=== PATIENT | female | born 1960 | race African-American/Black ===

== ENCOUNTER → 2018-11-25 | Outpatient (CLI) | payer BC ==
[~2018-11-25] MED LIST: CALCIUM 500500 M1; ESTROVEN MAX400 MCG PO; MULTIVITAMIN FO1 CAP; VITAMIN D31000 IU PO; VITAMIN E 400 U4001 PO
== END ==
LOC: MC.RAD 09:39
DX: Z12.31 Encounter for screening mammogram for malignant neoplasm of breast (principal)

== ENCOUNTER → 2020-07-05 | Outpatient (CLI) | payer BC | LOC: MC.RAD 09:20 | DX: Z12.31 Encounter for screening mammogram for malignant neoplasm of breast (principal); N63.11 Unspecified lump in the right breast, upper outer quadrant ==

== ENCOUNTER → 2020-07-08 | Outpatient (CLI) | payer BC | LOC: MC.RAD 10:53 | DX: N63.10 Unspecified lump in the right breast, unspecified quadrant (principal) ==

== ENCOUNTER → 2020-07-19 | Outpatient (CLI) | payer BC | LOC: MC.RAD 07:57 | DX: N63.10 Unspecified lump in the right breast, unspecified quadrant (principal); Z98.82 Breast implant status ==

== ENCOUNTER 2020-11-23 19:21 | Emergency (ER) | payer BC ==
[~2020-11-23] VITALS: Ht 165.1 cm; Wt 82.3 kg
[2020-11-23 19:41] VITALS: TEMP 99.6
[2020-11-23 20:41] LABS: HEMOGLOBIN 14.1 g/dl (12.5-16.0); MEAN CELL VOLUME 83 fl (80.0-100.0); MEAN CORPUSCULAR HEMOGLOBIN 27 pg (27.0-31.0); MEAN CORPUSCULAR HGB CONC 32 g/dl (33.0-37.0); MEAN PLATELET VOLUME 9.8 fl (7.4-10.4); PLATELET COUNT 161 K/mm3 (130-400); RED BLOOD COUNT 5.28 M/mm3 (4.10-5.30); REDCELL DISTRIBUTION WIDTH-CV 13.2 % (11.5-14.5)
[2020-11-23 20:55] LABS: INR 1.1 (0.8-3.0); PROTHROMBIN TIME 12.3 SECONDS (9.7-12.8)
[2020-11-23 20:58] LABS: PARTIAL THROMBOPLASTIN TIME 34.8 SECONDS (26.0-37.0)
[2020-11-23 20:59] LABS: ALANINE AMINOTRANSFERASE 19 U/L (4-34); ALKALINE PHOSPHATASE 57 U/L (50-136); ANION GAP 6 mmol/L (7-16); AST,SGOT 23 U/L (15-37); BILIRUBIN,TOTAL 0.5 mg/dL (0.0-1.0); BLOOD UREA NITROGEN 11 mg/dL (7-17); C-REACTIVE PROTEIN 2.4 mg/dL (0.0-0.9); CALCIUM 8.9 mg/dL (8.4-10.2); CARBON DIOXIDE 26 mmol/L (22-30); CHLORIDE 103 mmol/L (98-107); CREATINE KINASE 36 U/L (30-135); GLUCOSE 107 mg/dL (74-106); LACTATE DEHYDROGENASE 360 U/L (313-618); POTASSIUM 4.2 mmol/L (3.4-5.0); SODIUM 135 mmol/L (137-145)
[2020-11-23 21:13] LABS: COLLECTION METHOD CLEAN CATCH
[2020-11-23 21:22] LABS: PH 6 (5-8); SQUAMOUS EPITHELIAL None Seen /hpf; URINE APPEARANCE Clear; URINE BACTERIA None Seen /hpf; URINE BILIRUBIN Negative (NEGATIVE); URINE BLOOD 1+ (NEGATIVE); URINE COLOR Straw; URINE GLUCOSE Negative (NEGATIVE); URINE KETONE Negative (NEGATIVE); URINE LEUKOCYTE ESTERASE Negative (NEGATIVE); URINE NITRATE Negative (NEGATIVE); URINE PROTEIN(semi-quant) Negative (NEGATIVE); URINE RBC None Seen /hpf; URINE UROBILINOGEN Negative (NEGATIVE); URINE WBC 0-2 /hpf
[2020-11-23 21:24] LABS: TROPONIN-I < 0.012 ng/mL (0.000-0.035)
[2020-11-23 21:25] LABS: ERYTHROCYTE SEDIMENTATION RATE 8 mm/hr (0-30)
[2020-11-23 21:53] LABS: BAND 1 % (0-10); EOSINOPHIL 1 % (0-4); HYPOCHROMIA 1+; LYMPHOCYTE 1 % (20.0-51.0); NEUTROPHILS 95 % (42.0-75.2); PLATELET ESTIMATE NORMAL (NORMAL)
[2020-11-23 21:54] LABS: OVALOCYTES 1+
[2020-11-23] MEDS ORDERED: LEVAQUIN 750MG750 M1 PO (22:40)
[2020-11-23] MEDS ORDERED: BACTROBAN 22GM22 GM TP (23:45)
[2020-11-24 01:18] VITALS: BP 114/59; PULSE 92
== END 2020-11-24 01:18 | disposition home or self-care (01) ==
LOC: COL.ER 19:21
PROVIDERS: Emergency Medicine
DX: R50.9 Fever, unspecified (principal); C83.10 Mantle cell lymphoma, unspecified site; Z87.891 Personal history of nicotine dependence
CPT/HCPCS: J0692; J7120

== ENCOUNTER → 2021-11-02 | Outpatient (CLI) | payer BC ==
[~2021-11-02] MED LIST changes: +BACTROBAN 22GM22 GM TP; +LEVAQUIN 750MG750 M1 PO
== END ==
LOC: MC.RAD 09:51
DX: Z12.31 Encounter for screening mammogram for malignant neoplasm of breast (principal)

== ENCOUNTER → 2022-04-09 | Outpatient (CLI) | payer BC | LOC: ZCOL.LAB 14:47 | DX: Z20.822 Contact with and (suspected) exposure to COVID-19 (principal) ==

== ENCOUNTER → 2022-06-11 | Outpatient (CLI) | payer BC | LOC: ZCOL.LAB 15:23 | DX: Z20.822 Contact with and (suspected) exposure to COVID-19 (principal) ==

== ENCOUNTER → 2022-12-07 | Outpatient (CLI) | payer BC | LOC: COL.LAB 10:10 | DX: Z11.59 Encounter for screening for other viral diseases (principal) ==

== ENCOUNTER → 2024-01-02 | Outpatient (CLI) | payer BC | LOC: MC.RAD 09:18 | DX: Z12.31 Encounter for screening mammogram for malignant neoplasm of breast (principal) ==

== ENCOUNTER 2024-01-24 19:02 | Inpatient (IN) | payer BC ==
[~2024-01-24] VITALS: Ht 167.6 cm; Wt 73.7 kg
[2024-01-24] MEDS ORDERED: cefTRIAXone 2 G in Water For Injection,Sterile 20 ML IV ONE (19:15)
[2024-01-24] MEDS ORDERED: NS 1,000 ML IV ONE (19:15)
[2024-01-24] MEDS ORDERED: Azithromycin 250 MG TAB PO ONE (19:15)
[2024-01-24 19:47] LABS: GRAN # 0.2 K/mm3 (1.4-6.5); GRAN % 30.9 % (42.2-75.2); HEMATOCRIT 37.2 % (37.0-47.0); HEMOGLOBIN 12.4 g/dl (12.5-16.0); LYMPH # 0.3 K/mm3 (1.2-3.4); LYMPH % 39.7 % (20.0-51.0); MEAN CELL VOLUME 79 fl (80.0-100.0); MEAN CORPUSCULAR HEMOGLOBIN 26 pg (27-31); MEAN CORPUSCULAR HGB CONC 33 g/dl (33.0-37.0); MEAN PLATELET VOLUME 9.7 fl (7.4-10.4); MONO # 0.1 K/mm3 (0.1-0.6); MONO % 14.7 % (1.7-9.3); PLATELET COUNT 142 K/mm3 (130-400); RED BLOOD COUNT 4.69 M/mm3 (4.10-5.30)
[2024-01-24 20:10] LABS: ALBUMIN 2.7 g/dL (3.4-4.8); CALCIUM 9.7 mg/dL (8.4-10.2); CREATININE, serum 0.87 mg/dL (0.57-1.11); POTASSIUM 3.9 mEq/L (3.5-4.5)
[2024-01-24 20:25] LABS: BILIRUBIN,TOTAL 1.5 mg/dL (0.2-1.2)
[2024-01-24] MEDS ORDERED: LR 1,000 ML IV ONE (20:30)
[2024-01-24 21:09] LABS: COLLECTION METHOD CLEAN CATCH
[2024-01-24] MEDS ORDERED: Acetaminophen 500 MG TAB PO ONE (21:15)
[2024-01-24 21:34] LABS: PH 5.5 (5.0-8.5); URINE APPEARANCE CLOUDY (CLEAR/HAZY); URINE BLOOD 2+ (NEGATIVE); URINE COLOR ORANGE (YELLOW); URINE GLUCOSE NEGATIVE (NEGATIVE); URINE KETONE TRACE (NEGATIVE); URINE NITRATE NEGATIVE (NEGATIVE); URINE PROTEIN(semi-quant) 2+ (NEGATIVE)
[2024-01-24] MEDS ORDERED: MULTIPLE VITAMI1 CAP PO (21:43)
[2024-01-24] MEDS ORDERED: [UNRECOGNIZED DRUG - OTHER] PO (21:44)
--- NOTE | 2024-01-24 22:02 | NUR ---
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
[2024-01-24 22:05] LABS: SQUAMOUS EPITHELIAL 0-2 /hpf (0-10); URINE RBC 0-2 /hpf (0-2)
[2024-01-24] MEDS ORDERED: Ibuprofen 400 MG TAB PO PRN (22:15)
[2024-01-24] MEDS ORDERED: Ondansetron 4 MG/2 ML VIAL IV PRN (22:15)
[2024-01-24] MEDS ORDERED: NS 1,000 ML IV SCH (22:15)
[2024-01-24] MEDS ORDERED: Acetaminophen 325 MG TAB PO PRN (22:15)
[2024-01-24] MEDS ORDERED: Vancomycin 1.5 GM,Special Dose/Pharmacy Prepared 1.5 GM in NS 250 ML IV ONE (22:30)
--- NOTE | 2024-01-24 22:32 | NUR ---
REPORT RECIEVED FROM STEVE CAMPA RN AT 2367.
[2024-01-24 22:53] LABS: INR 1.4 (0.8-3.0); PROTHROMBIN TIME 15.2 SECONDS (9.7-12.8)
--- NOTE | 2024-01-24 23:00 | NUR ---
FEMALE PATIENT ARRIVED TO ROOM #343 VIA STETCHER. PATIENT ASSISTED TO BED WITH STAND BY ASSIST. GAIT STEADY. LR INFUSING INTO LEFT FOREARM WITH NO COMPLICATIONS NOTED. TELEMETRY INTACT. INITAL INTAKE AND ASSESSMENT COMPLETED. PATIENT TOELRATED WELL. PATIENT VERBALIZED UNDERSTANDING OF BED CONTROLS AND CALL LIGHT. PRIMARY NURSE ASKED PATIENT IF SHE WOULD A SANDWITCH TRAY AND SOMETHING TO DRINK. PATIENT AGREED TO A SANDWITCH TRAY, ORANGE JUICE, AND PITCHER OF ICE WATER. ALL GIVEN. PATIENT DENIES ANY OTHER NEEDS. BED IN LOW POSITION WITH WHEELS LOCKED WITH RAILS UP X2 AND CALL LIGHT WITHIN REACH.
[2024-01-24 23:01] VITALS: BP 120/75; PULSE 110; TEMP 99.5
[2024-01-24 23:48] VITALS: BP 120/75
[2024-01-25] VITALS (12 sets, daily range): BP systolic 102–127; BP diastolic 52–73; PULSE 59–116; TEMP 98–99.4
[2024-01-25] MEDS ORDERED: Albuterol/Ipratropium 3 MG-0.5 MG/3 ML Neb Soln IH PRN (01:15)
[2024-01-25] MEDS ORDERED: Albuterol/Ipratropium 3 MG-0.5 MG/3 ML Neb Soln IH SCH (02:00)
[2024-01-25 06:51] LABS: MEAN CELL VOLUME 79 fl (80.0-100.0); MEAN CORPUSCULAR HGB CONC 34 g/dl (33.0-37.0); MEAN PLATELET VOLUME 10.7 fl (7.4-10.4); PLATELET COUNT 123 K/mm3 (130-400); RED BLOOD COUNT 3.91 M/mm3 (4.10-5.30); REDCELL DISTRIBUTION WIDTH-CV 13.2 % (11.5-14.5)
[2024-01-25 07:11] LABS: ALBUMIN 2.2 g/dL (3.4-4.8); BILIRUBIN,TOTAL 0.9 mg/dL (0.2-1.2); CALCIUM 8.4 mg/dL (8.4-10.2); CREATININE, serum 0.73 mg/dL (0.57-1.11); HEMATOCRIT 30.7 % (37.0-47.0); HEMOGLOBIN 10.4 g/dl (12.5-16.0); MEAN CORPUSCULAR HEMOGLOBIN 27 pg (27-31); POTASSIUM 3.8 mEq/L (3.5-4.5); TOTAL PROTEIN 5.4 g/dl (6.2-8.1)
--- NOTE | 2024-01-25 07:26 | NUR ---
CRITICAL LOW WBC CALLED TO DR. BACA. NO NEW ORDERS AT THIS TIME.
[2024-01-25] MEDS ORDERED: Multivitamin TAB PO SCH (09:00)
[2024-01-25] MEDS ORDERED: Pantoprazole 40 MG in NS 10 ML IV SCH (09:00)
[2024-01-25 09:04] LABS: BAND 6 % (0-10); LYMPHOCYTE 74 % (20.0-51.0); NEUTROPHILS 4 % (42.0-75.2); PLATELET ESTIMATE NORMAL (NORMAL)
[2024-01-25 09:06] LABS: MICROCYTOSIS 1+
--- NOTE | 2024-01-25 10:13 | NUR ---
PT RESTING IN CHAIR WITH PAIN 3/10 IN HEAD. PRN TYLENOL PROVIDED. STEADY GAIT AROUND ROOM, TOLERATING DEIT WELL, FAMILY AT BEDSIDE. REVERSE PRECAUTIONS IN PLACE. WILL CONTINUE TO MONITOR.
--- NOTE | 2024-01-25 11:02 | NUR ---
Clam Grader met with patient and to discuss discharge planning. Patient verified that she and /DPOA Alejandro ([phone]) live in [place]. Patient lists her son Pierre ([phone]) as contact. Patient sees FURNACE DOOR TENDER at [facility] for medical care and uses [facility] in [place]. Patient denies using any DME and states she is active and independent. Patient is on active cancer treatment every other month and denies any complications with this care. 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 She wants to complete one while she is here. Patient plans to return home independently at discharge. Discharge plan: Home
[2024-01-25] MEDS ORDERED: Vancomycin 1.25 GM,Special Dose/Pharmacy Prepared 1.25 GM in NS 250 ML IV SCH (11:30)
--- NOTE | 2024-01-25 11:54 | NUR ---
Data: Electric Locomotive Firer/Fireman visit attempted. RN was with Patient. Patient said something that was unclear at the time. RN and Electric Locomotive Firer/Fireman discussed at the Nurses' station. RN and Electric Locomotive Firer/Fireman believe Patient intended to decline Electric Locomotive Firer/Fireman visit. Assessment: Patient declined. Plan of Care: Chaplains will remain available as requested while Patient is admitted to this hospital.
--- NOTE | 2024-01-25 18:33 | NUR ---
PATIENT SITTING UP IN BEDSIDE RECLINER WITH AT BEDSIDE WITH TV ON WITH NO ACUTE DISTRESS NOTED. PATIENT ON ROOM AIR. NS INFUSING INTO LEFT FOREARM WITH NO COMPLICATIONS NOTED. PATIENT COMPLETED DINNER TRAY WITH 80% EATEN. TRAY REMOVED. PATIENT DENIES ANY OTHER NEEDS. PATIENT CARE ASSUMED FROM MARTHA. RECLINER LOCKED AND CALL LIGHT WITHIN REACH.
--- NOTE | 2024-01-25 19:50 | NUR ---
PATIENT RESTING IN BEDSIDE RECLINER WITH TV ON WITH AT BEDSIDE WITH NO ACUTE DISTRESS NOTED. PATIENT ON ROOM AIR. NS AND ZOSYN INFUSING INTO LEFT FOREARM WITH NO COMPLICATIONS NOTED. ASSESSMENT AND MEDICATION ADMINISTRATION COMPLETED AT THIS TIME. PATIENT TOELRATED WELL. PATIENT DENIES ANY NEEDS. RECLINER LOCKED AND CALL LIGHT WITHIN REACH.
[2024-01-26] VITALS (11 sets, daily range): BP systolic 123–134; BP diastolic 59–76; PULSE 110–124; TEMP 98.1–99.5
--- NOTE | 2024-01-26 08:12 | NUR ---
PT RESTING IN CHAIR WITH NO PAIN BUT PRODUCTIVE COUGH AT THIS TIME. COURSE CRACKLES IN ALL LUNG FELIDS. INSTRUCTED PT TO USE IS AND DEEP BREATHING TECHNIQUES. NO NEEDS AT THIS TIME, WILL CONTINUE TO MONITOR.
[2024-01-26 08:52] LABS: MEAN CELL VOLUME 79 fl (80.0-100.0); MEAN CORPUSCULAR HGB CONC 34 g/dl (33.0-37.0); MEAN PLATELET VOLUME 10.8 fl (7.4-10.4); PLATELET COUNT 129 K/mm3 (130-400); RED BLOOD COUNT 3.73 M/mm3 (4.10-5.30); REDCELL DISTRIBUTION WIDTH-CV 13.3 % (11.5-14.5)
[2024-01-26 08:54] LABS: HEMATOCRIT 29.5 % (37.0-47.0); HEMOGLOBIN 9.9 g/dl (12.5-16.0); MEAN CORPUSCULAR HEMOGLOBIN 27 pg (27-31)
[2024-01-26] MEDS ORDERED: Benzonatate 100 MG CAP PO SCH (09:32)
[2024-01-26] MEDS ORDERED: guaiFENesin/Codeine Oral Soln 100-10 MG/5 ML 5 ML UD PO PRN (10:00)
[2024-01-26 12:39] LABS: BAND 27 % (0-10); BASOPHIL 2 % (0-2); LYMPHOCYTE 34 % (20.0-51.0); NEUTROPHILS 29 % (42.0-75.2); NUCLEATED RED BLOOD CELL 2 (0-6); PLATELET ESTIMATE NORMAL (NORMAL)
[2024-01-26 12:40] LABS: MICROCYTOSIS 1+
--- NOTE | 2024-01-26 19:41 | NUR ---
RECEIVED CHANGE OF SHIFT REPORT FROM DAY SHIFT NURSE. PATIENT RESTING IN BED, FAMILY AT BEDSIDE. NO NEEDS REPORTED AT TIME OF REPORT.
--- NOTE | 2024-01-26 20:17 | NUR ---
PER PCT REPORT WHEN VS TAKEN, NOTIFIED NURSE THAT HR ELEVATED, APICAL PULSE CHECKED AT 134, PATIENT DENIES CHEST PAIN/SOA. OBSERVED OXYGEN SAT AT 94-96PERCENT. SEE [employer] FOR REST OF VS. DENIES CHILLS OR SHORTNESS OF AIR AT THIS TIME.
--- NOTE | 2024-01-26 20:29 | NUR ---
INFORMED ONCALL PROVIDER OF ELEVATED HEART RATE, PROVIDER TO ENTER ORDERS FOR EKG, RT NOTIFIED OF EKG ORDER.
[2024-01-27 00:18] VITALS: BP 137/77; PULSE 105; TEMP 98.8
[2024-01-27 01:00] VITALS: BP_SYST 137
[2024-01-27] MEDS ORDERED: Levalbuterol Neb Soln 1.25 MG/3 ML UD IH SCH (02:00)
[2024-01-27 03:50] VITALS: BP 150/75; PULSE 112; TEMP 99.2
[2024-01-27 05:30] VITALS: BP_SYST 150
[2024-01-27 06:33] LABS: MEAN CELL VOLUME 81 fl (80.0-100.0); MEAN CORPUSCULAR HGB CONC 33 g/dl (33.0-37.0); MEAN PLATELET VOLUME 10.3 fl (7.4-10.4); PLATELET COUNT 157 K/mm3 (130-400); RED BLOOD COUNT 3.61 M/mm3 (4.10-5.30); REDCELL DISTRIBUTION WIDTH-CV 13.6 % (11.5-14.5)
[2024-01-27 06:37] LABS: HEMATOCRIT 29.2 % (37.0-47.0); HEMOGLOBIN 9.6 g/dl (12.5-16.0); MEAN CORPUSCULAR HEMOGLOBIN 27 pg (27-31)
--- NOTE | 2024-01-27 07:16 | NUR ---
CHANGE OF SHIFT REPORT GIVEN TO DAY SHIFT NURSEJOYCE.
[2024-01-27 07:23] LABS: BAND 19 % (0-10); HYPOCHROMIA 1+; LYMPHOCYTE 26 % (20.0-51.0); METAMYELOCYTE 1 % (0-0); NEUTROPHILS 44 % (42.0-75.2); PLATELET ESTIMATE NORMAL (NORMAL)
[2024-01-27 07:24] LABS: OVALOCYTES 1+
[2024-01-27 08:01] VITALS: BP 133/74; PULSE 109; TEMP 99.2
[2024-01-27] MEDS ORDERED: PROAIR HFA0.09 MG/AC IH (08:39)
[2024-01-27] MEDS ORDERED: FLONASE NASAL S16 GM NS (08:40)
[2024-01-27 09:00] VITALS: BP_SYST 133
--- NOTE | 2024-01-27 09:19 | NUR ---
PATIENT ALERT AND ORIENTED X4. VSS. PATIENT HERE FOR PNA, UTI, LYMPHOMA. IV TO LEFT FA INT. PATIENT ON RA. PATIENT DENIES ANY PAIN THIS AM. AM MEDS ADMINISTERED. PATIENT DENIES ANY FURTHER NEEDS. CALL LIGHT IN REACH. SLOW ZOSYN INFUSING INTO IV. PATIENT REFUSES BREAKFAST THIS AM.
[2024-01-27] MEDS ORDERED: TESSALON P100 MG/CAP PO (11:19)
[2024-01-27] MEDS ORDERED: ZITHROMAX500 M2 PO (11:20)
[2024-01-27] MEDS ORDERED: AMOXICILLIN 8751 TAB PO (11:20)
--- NOTE | 2024-01-27 12:32 | NUR ---
DISCHARGE INSTRUCTIONS PROVIDED. PATIENT EDUCATION GIVEN. IV DC'D. FOLLOW UP APPOINTMENT DISCUSSED. DISCUSSED ORDERED PROCEDURE. MEDICATIONS REVIEWED. PATIENT DENIES ANY QUESTIONS OR CONCERNS.
--- NOTE | 2024-01-27 13:28 | NUR ---
PATIENT ESCORTED OUT VIA WHEELCHAIR.
== END 2024-01-27 13:45 | disposition home or self-care (01) | DRG 871 ==
LOC: COL.ER 19:02 → SURG 22:00
PROVIDERS: Family Medicine; Nurse Practitioner Family; ADMIT Internal Medicine
DX: A41.9 Sepsis, unspecified organism (principal); J18.9 Pneumonia, unspecified organism; N39.0 Urinary tract infection, site not specified; C83.10 Mantle cell lymphoma, unspecified site; D84.9 Immunodeficiency, unspecified; E87.20 Acidosis, unspecified; E87.1 Hypo-osmolality and hyponatremia; D70.9 Neutropenia, unspecified; R74.01 Elevation of levels of liver transaminase levels; Z20.822 Contact with and (suspected) exposure to COVID-19; R50.81 Fever presenting with conditions classified elsewhere; Z91.041 Radiographic dye allergy status; Z87.891 Personal history of nicotine dependence; Z23 Encounter for immunization
CPT/HCPCS: C9113; J0696; J1447; J1650; J2543; J3370; J7030; J7050; J7120

== ENCOUNTER → 2024-02-18 | Outpatient (CLI) | payer BC ==
[~2024-02-18] MED LIST changes: +AMOXICILLIN 8751 TAB PO; +FLONASE NASAL S16 GM NS; +MULTIPLE VITAMI1 CAP PO; +PROAIR HFA0.09 MG/AC IH; +TESSALON P100 MG/CAP PO; +ZITHROMAX500 M2 PO; +[UNRECOGNIZED DRUG - OTHER] PO
== END ==
LOC: COL.RAD 11:45
DX: J18.9 Pneumonia, unspecified organism (principal)